=== PATIENT | female | born 1995 | race African-American/Black ===

== ENCOUNTER 2017-08-18 16:06 | Emergency (ER) | payer SELFPAY ==
[~2017-08-18] VITALS: Ht 170.2 cm; Wt 72.0 kg
[2017-08-18] MEDS ORDERED: HYDROCODONE/ACETAMINOPHEN 5/325MG TABLET PO ONE (18:45)
[2017-08-18] MEDS ORDERED: BACITRACIN ZINC OINT UDPKT TOP ONE (18:45)
[2017-08-18 21:01] VITALS: BP 127/77
== END 2017-08-18 21:03 | disposition home or self-care (01) ==
LOC: ER 16:06
DX: S80.01XA Contusion of right knee, initial encounter (principal); S00.93XA Contusion of unspecified part of head, initial encounter; S60.00XA Contusion of unspecified finger without damage to nail, initial encounter; H53.8 Other visual disturbances; V43.52XA Car driver injured in collision with other type car in traffic accident, initial encounter; Y93.89 Activity, other specified; Y99.8 Other external cause status; Y92.410 Unspecified street and highway as the place of occurrence of the external cause
CPT/HCPCS: 73140; 73562; 99284; X7700

== ENCOUNTER 2018-09-09 17:45 | Emergency (ER) | payer OTHER ==
[~2018-09-09] VITALS: Ht 160 cm; Wt 72.0 kg
[2018-09-09] MEDS ORDERED: IBUPROFEN 600MG TABLET PO ONE (20:30)
[2018-09-09 21:35] VITALS: BP 128/77
== END 2018-09-09 21:35 | disposition home or self-care (01) ==
LOC: ER 17:45
DX: S56.911A Strain of unspecified muscles, fascia and tendons at forearm level, right arm, initial encounter (principal); M79.18 Myalgia, other site; V49.59XA Passenger injured in collision with other motor vehicles in traffic accident, initial encounter; Y93.89 Activity, other specified; Y92.89 Other specified places as the place of occurrence of the external cause; Y99.8 Other external cause status
CPT/HCPCS: 73080; 73090; 73110; 81025; 99283; A4565

== ENCOUNTER 2021-03-31 03:31 | Emergency (ER) | payer OTHER ==
[~2021-03-31] VITALS: Ht 160 cm; Wt 85.0 kg
[2021-03-31 04:23] LABS: BASOPHILS % 0.7 % (0.0-2.0); HEMATOCRIT. 36.8 % (36.0-48.0); HEMOGLOBIN. 12.3 g/dL (12.0-16.0); LYMPHOCYTES % 21.5 % (20.0-50.0); MEAN CORPUSCULAR HEMOGLOBIN 30.7 pg (28.0-32.0); MEAN CORPUSCULAR VOLUME 92.1 fL (81.0-99.0); MONOCYTES % 10.1 % (2.0-8.0); NEUTROPHILS % 66.7 % (40.0-76.0); PLATELET 293 x1000/uL (130-400); RED CELL DISTRIBUTION WIDTH 14.2 % (11.6-14.6)
[2021-03-31 04:30] LABS: CHLORIDE 108 mEq/L (98-107)
[2021-03-31 06:00] VITALS: BP 126/62
[2021-03-31] MEDS ORDERED: IOHEXOL-350 100 ML BOTTLE ONE (06:01)
== END 2021-03-31 06:24 | disposition home or self-care (01) ==
LOC: ER 03:31
DX: R07.89 Other chest pain (principal); R00.2 Palpitations; R06.02 Shortness of breath; R03.0 Elevated blood-pressure reading, without diagnosis of hypertension
CPT/HCPCS: 36415; 71045; 71275; 80053; 81025; 83880; 84484; 85025; 85379; 93005; 99285; Q9967; Z7610